=== PATIENT | male | born 1940 | race Caucasian/White ===

== ENCOUNTER → 2017-02-09 | Outpatient (CLI) | payer MEDICARE ==
[~2017-02-09] MED LIST: FOLI5CAP PO; LISI-515 PO; LISI2.5T3 PO; MULT-65 PO; OMEGCAP PO; PRAV10TA PO; VICT18IN SQ
[2017-02-09 15:58] LABS: MEAN CELL VOLUME 88.8 FL (80.0-100.0); MEAN CORPUSCULAR HEMOGLOBIN 30.4 PG (27.0-34.0); MEAN CORPUSCULAR HGB CONC 34.2 % (32.0-36.0); PLATELET COUNT 163 TH/MM3 (150-450); RED BLOOD COUNT 5.18 MIL/MM3 (4.50-5.90); RED CELL DISTRIBUTION WIDTH 13.9 % (11.6-17.2); REVIEW FLAG FINAL; WHITE BLOOD COUNT 11.8 TH/MM3 (4.0-11.0)
--- NOTE | 2017-02-11 15:10 | EKG ---
Date Performed: 02/09/2017 Time Performed: 15:41:33 PTAGE: 76 years EKG: Sinus rhythm WITH OCCASIONAL VENTRICULAR PREMATURE COMPLEXES BORDERLINE ECG NO PREVIOUS TRACING DOCTOR: Mundo Higuera Interpretating Date/Time 02/11/2017 15:09:58
== END ==
LOC: CPRE 15:07
PROVIDERS: ATTEND Specialist
DX: Z01.810 Encounter for preprocedural cardiovascular examination (principal); R49.0 Dysphonia; R94.31 Abnormal electrocardiogram [ECG] [EKG]; Z01.812 Encounter for preprocedural laboratory examination
CPT/HCPCS: 36415; 85027; 93005

== ENCOUNTER → 2017-02-11 | Day surgery (SDC) | payer MEDICARE ==
--- NOTE | 2017-02-10 09:06 | MH ---
cc: IHSAN LEE DATE OF ADMISSION 02/11/2017 HISTORY This is a 76-year-old gentleman with base of tongue lesion for base of tongue direct laryngoscopy biopsy. PAST MEDICAL HISTORY Unremarkable PAST SURGICAL HISTORY Unremarkable REVIEW OF SYSTEMS, FAMILY HISTORY AND SOCIAL HISTORY Unremarkable PHYSICAL EXAMINATION Well-appearing patient in no acute distress noted. 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 LUNGS: Clear. HEART: Regular rate and rhythm. ABDOMEN: Soft and nontender. EXTREMITIES: Without cyanosis, clubbing or edema. NEUROLOGIC: Alert, oriented, nonfocal neurologic exam. IMPRESSION A patient with base of tongue neoplasm for biopsy. Instructed method of surgery and possible complication include anesthetic complicationsm, cardiac difficulty, pulmonary difficulty, stroke, or even . Surgical complications bleeding, infection, airway obstruction and possible tracheostomy. The patient appeared to agree accept and understand above-mentioned risks and benefits. In addition, no guarantees or warranties regarding outcome were given. We will therefore proceed with surgery. MD SOHAM Webster/MARILYN /8:41 AM /8:55 AM
[~2017-02-11] VITALS: Ht 170.2 cm; Wt 78.8 kg
[~2017-02-11] MED LIST changes: +ACETAMINOPHEN/HYDROcodone 325 MG/7.5 MG TAB PO PRN; +CHLORHEXIDINE GLUCONATE 2 % 1 PACK (2 CLOTHS) TOPICAL PRN; +INSULIN HUMAN REGULAR 1,000 UNITS/10 ML VIAL SQ PRN; +LACTATED RINGER'S 1000 ML IV PRN; +METOPROLOL TARTRATE 25 MG TAB PO PRN; +MORPHINE SULFATE 4 MG/ML INJ IV PUSH PRN; +ONDANSETRON HCL 4 MG/2 ML VIAL IV PUSH ONE; +ONDANSETRON HCL 4 MG/2 ML VIAL IV PUSH PRN; +POVIDONE IODINE 5% (ANTISEPSIS KIT) 4 APPLICATIONS EACH NARE PRN; +PROPOFOL 200 MG/20 ML AMP IV ONE; +SODIUM CHLORID 0.9% 500 ML IV PRN
[2017-02-11 07:52] VITALS: BP 109/70; PULSE 82; RESP 20; TEMP 97.9; O2SAT 98
[2017-02-11 11:44] VITALS: BP 100/68; PULSE 70; RESP 20; TEMP 98.2; O2SAT 98
--- NOTE | 2017-02-12 13:08 | MP ---
cc: IHSAN LEE DATE OF SURGERY 02/11/2017 PREOPERATIVE DIAGNOSIS Base of tongue neoplasm PROCEDURE Direct laryngoscopy with biopsy ANESTHESIA General anesthesia ESTIMATED BLOOD LOSS Minimal COMPLICATIONS No complications. OPERATING SURGEON Dr. Lee OPERATION FOLLOWS Prepped and draped in the usual fashion. Anterior commissure scope was passed per orally. A right base of tongue lesion approximately 3 cm x 2 cm was biopsied with an upbiting forceps x2. No other abnormalities were noted in the endolarynx. The pyriform sinuses, postcricoid larynx, or the esophagus, pharynx and no palpable lymphadenopathy was noted as well. The scope was removed. The patient tolerated procedure well. MD SOHAM Webster/MARILYN /10:12 AM /1:01 PM
== END | disposition home or self-care (01) ==
LOC: HSDC 06:15
PROVIDERS: ATTEND Specialist
DX: C83.31 Diffuse large B-cell lymphoma, lymph nodes of head, face, and neck (principal); I10 Essential (primary) hypertension; Z87.891 Personal history of nicotine dependence
CPT/HCPCS: 00320; 31535; 81261; 88305; 88341; 88342; J2405; J3010